=== PATIENT | female | born 1980 | race Caucasian/White ===

== ENCOUNTER 2016-06-17 13:39 | Observation (INO) | payer MEDICAID ==
[~2016-06-17] VITALS: Ht 157.5 cm; Wt 58.5 kg
[~2016-06-17 13:39] MED LIST: PREN-88 PO
[2016-06-17] MEDS ORDERED: DEXT 5%/LACTATED RINGERS 1,000 ML IV SCH (14:30)
[2016-06-17 14:56] LABS: CLARITY URINE CLEAR (CLEAR); COLOR URINE YELLOW (YELLOW); GLUCOSE URINE NEGATIVE (NEGATIVE); KETONES URINE NEGATIVE (NEGATIVE); LEUKOCYTE ESTERASE URINE NEGATIVE (NEGATIVE); NITRITE URINE NEGATIVE (NEGATIVE); OCCULT BLOOD URINE NEGATIVE (NEGATIVE); PH URINE 7.5 (4.5-8.0); PROTEIN URINE NEGATIVE (NEGATIVE); SPECIFIC GRAVITY URINE 1.003 (1.005-1.030); UROBILINOGEN URINE 0.2 E.U./dL (0.2-1.0)
== END 2016-06-17 16:15 | disposition home or self-care (01) ==
LOC: L&D 13:39
PROVIDERS: ADMIT Obstetrics & Gynecology; ATTEND Obstetrics & Gynecology
DX: O26.893 Other specified pregnancy related conditions, third trimester (principal); M54.5 Low back pain; R10.2 Pelvic and perineal pain; Z3A.36 36 weeks gestation of pregnancy
CPT/HCPCS: 76815; 76818; 81003; G0378; 96360

== ENCOUNTER 2016-06-24 13:03 | Observation (INO) | payer MEDICAID ==
[~2016-06-24] VITALS: Ht 157.5 cm; Wt 58.1 kg
[2016-06-24] MEDS ORDERED: PREN-88 PO (13:56)
== END 2016-06-24 15:30 | disposition home or self-care (01) ==
LOC: L&D 13:03 → MERGE 13:03
PROVIDERS: ADMIT Obstetrics & Gynecology; ATTEND Obstetrics & Gynecology
DX: Z34.93 Encounter for supervision of normal pregnancy, unspecified, third trimester (principal); Z3A.37 37 weeks gestation of pregnancy
CPT/HCPCS: 76815; 76818; G0378

== ENCOUNTER 2016-06-26 07:23 | Observation (INO) | payer MEDICAID ==
[~2016-06-26] VITALS: Ht 157.5 cm; Wt 58.1 kg
[2016-06-26 08:34] LABS: GLUCOSE URINE NEGATIVE (NEGATIVE); KETONES URINE TRACE (NEGATIVE); LEUKOCYTE ESTERASE URINE 1+ (NEGATIVE); NITRITE URINE NEGATIVE (NEGATIVE); OCCULT BLOOD URINE NEGATIVE (NEGATIVE); PH URINE 6.5 (4.5-8.0); PROTEIN URINE TRACE (NEGATIVE); SPECIFIC GRAVITY URINE 1.026 (1.005-1.030)
[2016-06-26 08:35] LABS: CLARITY URINE SL HAZY (CLEAR); COLOR URINE DARK YELLOW (YELLOW)
[2016-06-26 08:37] LABS: SQUAMOUS EPITHELIAL CELL URINE 1+ /lpf (RARE/1+)
[2016-06-26 08:38] LABS: BACTERIA URINE 1+; MUCUS URINE 2+ /lpf (< = 2+); RBC URINE 0-2 /hpf (0-2)
[2016-06-26] MEDS ORDERED: LACTATED RINGERS 1,000 ML IV SCH (09:15)
[2016-06-26] MEDS ORDERED: CEFAZOLIN 2,000 MG in DEXT 5% WATER 100 ML IV NR (09:30)
== END 2016-06-26 09:58 | disposition home or self-care (01) ==
LOC: L&D 07:23
PROVIDERS: ADMIT Obstetrics & Gynecology; ATTEND Obstetrics & Gynecology
DX: O62.9 Abnormality of forces of labor, unspecified (principal); Z3A.37 37 weeks gestation of pregnancy
CPT/HCPCS: 59025; 76815; 76818; 81001; 96365; G0378; J0690; J7120; 96360; J7060; G0379

== ENCOUNTER 2016-07-01 11:16 | Observation (INO) | payer MEDICAID ==
[~2016-07-01] VITALS: Ht 157.5 cm; Wt 58.5 kg
[2016-07-01] MEDS ORDERED: PREN-88 PO (13:03)
[2016-07-01] MEDS ORDERED: LACTATED RINGERS 1,000 ML IV SCH (21:30)
== END 2016-07-01 13:25 | disposition home or self-care (01) ==
LOC: L&D 11:16
PROVIDERS: ADMIT Obstetrics & Gynecology; ATTEND Obstetrics & Gynecology
DX: O26.893 Other specified pregnancy related conditions, third trimester (principal); R10.9 Unspecified abdominal pain; Z3A.38 38 weeks gestation of pregnancy
CPT/HCPCS: 76815; 76818; G0378

== ENCOUNTER 2018-10-20 23:22 | Emergency (ER) | payer MEDICAID ==
[~2018-10-20] VITALS: Ht 157.5 cm; Wt 54.0 kg
[2018-10-21 01:05] LABS: CLARITY URINE CLEAR (CLEAR); COLOR URINE YELLOW (YELLOW); KETONES URINE TRACE (NEGATIVE); LEUKOCYTE ESTERASE URINE NEGATIVE (NEGATIVE); NITRITE URINE NEGATIVE (NEGATIVE); OCCULT BLOOD URINE NEGATIVE (NEGATIVE); PROTEIN URINE NEGATIVE (NEGATIVE); UROBILINOGEN URINE 0.2 E.U./dL (0.2-1.0)
[2018-10-21] MEDS ORDERED: ONDANSETRON HCL 4MG/2ML INJ IV STA (03:26)
[2018-10-21] MEDS ORDERED: SODIUM CHLORIDE 0.9% 1,000 ML IV ONE (03:26)
[2018-10-21] MEDS ORDERED: KETOROLAC 15MG/ML VIAL IV ONE (03:30)
[2018-10-21 03:43] LABS: BASOPHILS % 0.5 % (0.0-2.0); EOSINOPHILS % 1.1 % (0.0-5.0); HEMOGLOBIN. 12.4 g/dL (12.0-16.0); MEAN CORPUSCULAR HEMOGLOBIN 29.2 pg (28.0-32.0); MEAN CORPUSCULAR VOLUME 87.3 fL (81.0-99.0); MEAN PLATELET VOLUME 8.5 fl (7.4-10.4); MONOCYTES % 7.2 % (2.0-8.0); NEUTROPHILS % 54.2 % (40.0-76.0); PLATELET 286 x1000/uL (130-400); RED BLOOD CELL COUNT 4.24 mill/uL (4.2-5.4); RED CELL DISTRIBUTION WIDTH 13.3 % (11.6-14.6)
[2018-10-21 03:57] LABS: CHLORIDE 109 mEq/L (98-107)
[2018-10-21 05:34] VITALS: BP 98/51
== END 2018-10-21 05:34 | disposition home or self-care (01) ==
LOC: ER 23:22
DX: R51 Headache (principal); R11.2 Nausea with vomiting, unspecified; Z98.51 Tubal ligation status
CPT/HCPCS: 36415; 80053; 81003; 83690; 85025; 96361; 96374; 96375; 99283; J1885; J2405; J7030

== ENCOUNTER 2024-06-25 13:56 | Emergency (ER) | payer MEDICAID ==
[~2024-06-25] VITALS: Ht 165.1 cm; Wt 60.0 kg
[2024-06-25 13:58] VITALS: PULSE 89; RESP 14; O2SAT 100
[2024-06-25 14:05] VITALS: BP 114/64; TEMP 37.1; O2SAT 100
[2024-06-25] MEDS: KETOROLAC 30MG/ML VIAL IM STA (14:59)
[2024-06-25 15:04] LABS: CLARITY URINE CLEAR (CLEAR); COLOR URINE YELLOW (YELLOW); GLUCOSE URINE NEGATIVE (NEGATIVE); KETONES URINE NEGATIVE (NEGATIVE); LEUKOCYTE ESTERASE URINE NEGATIVE (NEGATIVE); NITRITE URINE NEGATIVE (NEGATIVE); OCCULT BLOOD URINE NEGATIVE (NEGATIVE); PH URINE 7.5 (4.5-8.0); PROTEIN URINE NEGATIVE (NEGATIVE); SPECIFIC GRAVITY URINE 1.011 (1.005-1.030); UROBILINOGEN URINE 0.2 E.U./dL (0.2-1.0)
[2024-06-25 15:07] LABS: CHLORIDE 99 mEq/L (98-107); DIFFERENTIAL COMMENT 1; HEMATOCRIT. 32.6 % (36.0-48.0); HEMOGLOBIN. 10.1 g/dL (12.0-16.0); MEAN CORPUSCULAR HGB CONC 30.9 g/dL (31.0-37.0); MEAN CORPUSCULAR VOLUME 64.5 fL (81.0-99.0); MEAN PLATELET VOLUME 8.7 fl (7.4-10.4); PLATELET 483 x1000/uL (130-400); POTASSIUM 3.9 mEq/L (3.5-5.1); RED BLOOD CELL COUNT 5.05 mill/uL (4.2-5.4); RED CELL DISTRIBUTION WIDTH 24.8 % (11.6-14.6); SODIUM 137 mEq/L (136-145); WHITE BLOOD COUNT 3.5 x1000/uL (4.5-11.0)
[2024-06-25 15:08] LABS: CALCIUM 9.7 mg/dL (8.7-10.4); CARBON DIOXIDE 30 mEq/L (21-32)
[2024-06-25 15:13] LABS: CREATININE 0.6 mg/dL (0.6-1.0); GLUCOSE 94 mg/dL (70-105); UREA NITROGEN BLOOD 8 mg/dL (9-23)
[2024-06-25 15:15] LABS: ALANINE AMINOTRANSFERASE 51 IU/L (10-49); ALBUMIN 4.6 g/dL (3.2-4.8); ASPARTATE AMINOTRANSFERASE 35 IU/L (<34); BILIRUBIN DIRECT 0.1 mg/dL (<=3.0); BILIRUBIN TOTAL 0.5 mg/dL (0.1-1.0); PROTEIN TOTAL 8.1 g/dL (6.0-8.3)
[2024-06-25 15:42] LABS: ANISOCYTOSIS 3+; HYPOCHROMASIA 2+; MICROCYTOSIS 3+; PLATELET ESTIMATE SLIGHTLY INCREASED
[2024-06-25 15:43] LABS: GIANT PLATELETS 1+; TARGET CELLS 1+
[2024-06-25] MEDS: HYDROCODONE/ACETAMINOPHEN 5/325MG TABLET PO ONE (16:26)
[2024-06-25] MEDS ORDERED: ACET-2708 MT (16:33)
== END 2024-06-25 16:53 | disposition home or self-care (01) ==
LOC: ER 13:56
DX: M54.50 Low back pain, unspecified (principal); Z98.51 Tubal ligation status; Z98.890 Other specified postprocedural states; Z79.899 Other long term (current) drug therapy
CPT/HCPCS: 99285; 74176; 80076; 80048; 81003; 85025; 86850; 86900; 86901; 36415; 96372; J1885